=== PATIENT | male | born 1960 | race Caucasian/White ===

== ENCOUNTER 2024-02-21 07:14 | Day surgery (SDC) | payer OTHER ==
[2024-02-21] MEDS ORDERED: fentaNYL 100 MCG/2 ML SDV ONE (07:45)
[2024-02-21] MEDS ORDERED: Propofol 200 MG/20 ML SDV ONE (07:45)
[2024-02-21] MEDS: Lactated Ringers 1,000 ML IV SCH (08:14)
== END 2024-02-21 10:28 | disposition home or self-care (01) ==
LOC: JP.SDS 07:14
PROVIDERS: ATTEND Surgery
DX: Z12.11 Encounter for screening for malignant neoplasm of colon (principal); D12.3 Benign neoplasm of transverse colon; D12.5 Benign neoplasm of sigmoid colon; E78.5 Hyperlipidemia, unspecified; E66.9 Obesity, unspecified
CPT/HCPCS: 45385; J2704; J3010; J7120; 00811-QZ; 88305